=== PATIENT | female | born 1975 | race Caucasian/White ===

== ENCOUNTER 2018-08-16 00:12 | Emergency (ER) | payer OTHER ==
[~2018-08-16] VITALS: Ht 170.2 cm; Wt 75.7 kg
[2018-08-16 00:26] VITALS: Ht 170.2 cm; Wt 75.7 kg
[2018-08-16] MEDS ORDERED: KETOROLAC 60 MG INJ IM STA (06:14)
[2018-08-16] MEDS ORDERED: ONDANSETRON (ODT) 4 MG TAB ODT STA (06:18)
[2018-08-16] MEDS ORDERED: LIDOCAINE 1% (MPF) 5 ML VIAL IM ONE (06:30)
[2018-08-16] MEDS ORDERED: metroNIDAZOLE 500 MG TAB PO ONE (06:30)
[2018-08-16] MEDS ORDERED: DOXYCYCLINE 100 MG TAB PO ONE (06:30)
[2018-08-16] MEDS ORDERED: CEFTRIAXONE 1 GM INJ IM ONE (06:30)
[2018-08-16] MEDS ORDERED: METR500T PO (07:25)
[2018-08-16] MEDS ORDERED: CEPH-443 PO (07:25)
[2018-08-16] MEDS ORDERED: DOXY100T20 PO (07:25)
[2018-08-16] MEDS ORDERED: ONDA4TAB8 PO (07:25)
[2018-08-16 07:28] VITALS: BP 104/61; PULSE 57; RESP 16
--- NOTE | 2018-08-16 07:36 | ERD ---
ER Documentation Chief Complaint Chief Complaint pt reports possible cotton ball in vagina x 1 month HPI History of Present Illness: 43-year-old female with no past medical history comes in today with complaint of vaginal discharge and possible foreign body in vagina. Patient reports getting off her period approximately 2 days ago. Patient reports approximately last month around the same time she used cotton rounds instead of a tampon during her period. Patient believes that she may have left some of the cotton grounds inside of her vagina. Patient reports having yellow vaginal discharge after use of these cotton swabs. Patient last time having sex was 2018. Patient denies these type of symptoms after sexual intercourse. More specifically it has occurred after use of these cotton rounds/swabs. At home pharmacological/nonpharmacological treatment for symptoms: denies Denies social concerns; Denies recent foreign travel ROS All systems reviewed and are negative except as per history of present illness. Medications Home Meds Active Scripts Ondansetron Hcl* (Zofran*) 4 Mg Tablet, 4 MG PO Q12 for nausea/vomiting for 27 Days, TAB Prov:LUIS TORRES NP 08/16/18 Metronidazole* (Flagyl*) 500 Mg Tablet, 500 MG PO TID for pelvic/vaginal infe ction for 14 Days, #27 TAB Prov:LUIS TORRES V POT LINER 08/16/18 Cephalexin* (Keflex*) 500 Mg Capsule, 500 MG PO QID for urine infection for 7 Days, CAP Prov:LUIS TORRES V POT LINER 08/16/18 Doxycycline Hyclate* (Doxycycline Hyclate*) 100 Mg Tablet.dr, 100 MG PO BID for pelvic/vaginal infection for 14 Days, #27 TAB Prov:LUIS TORRES V POT LINER 08/16/18 Allergies Allergies: Coded Allergies: No Known Allergy (Unverified , 08/16/18) PMhx/Soc Medical and Surgical Hx: pt denies Medical Hx History of Surgery: Yes (d&c) Anesthesia Reaction: No Hx Alcohol Use: No Hx Substance Use: No Hx Tobacco Use: Yes Smoking Status: Current every day smoker FmHx Family History: No diabetes Physical Exam Vitals Vital Signs Date Temp Pulse Resp B/P (MAP) Pulse Ox O2 O2 Flow FiO2 Time Delivery Rate 08/16/18 57 16 104/61 100 Room Air 07:28 (75) 08/16/18 96.7 68 16 142/73 100 00:26 (96) Physical Exam Const: No acute distress Head: Atraumatic Eyes: Normal Conjunctiva ENT: Normal External Ears, Nose and Mouth. Neck: Full range of motion. No meningismus. Resp: Clear to auscultation bilaterally Cardio: Regular rate and rhythm, no murmurs Abd: Soft, tenderness to suprapubic, non distended. Normal bowel sounds, Skin: No petechiae or rashes Back: No midline or flank tenderness Ext: No cyanosis, or edema Neur: Awake and alert Psych: Normal Mood and Affect Pelvic Exam: Metal Flow Coordinator present Abdomen: Nontender External Genitalia: Normal Skin Speculum: Normal vaginal mucosa, yellow blood-tinged cervical discharge Bimanual: No adnexal masses; tenderness over uterus no CMT, Results 24 hrs Laboratory Tests Test 08/16/18 06:36 08/16/18 06:40 POC Beta HCG, Qualitative NEGATIVE Urine Color YELLOW Urine Clarity SLIGHTLY CLOUDY Urine pH 5.0 Urine Specific [place] 1.020 Urine Ketones NEGATIVE mg/dL Urine Nitrite POSITIVE mg/dL Urine Bilirubin NEGATIVE mg/dL Urine Urobilinogen NEGATIVE mg/dL Urine Leukocyte Esterase NEGATIVE [place]/ul Urine Microscopic RBC 1 /HPF Urine Microscopic WBC 1 /HPF Urine Squamous Epithelial Cells FEW /HPF Urine Bacteria FEW /HPF Urine Mucus FEW /HPF Urine Hemoglobin 1+ mg/dL Urine Glucose NEGATIVE mg/dL Urine Total Protein NEGATIVE mg/dl Current Medications Medications Dose Sig/Vicente Start Time Status Last (Trade) Ordered Route PRN Stop Time Admin Dose Reason Admin Ketorolac 60 mg ONCE STAT 08/16/18 DC 08/16/18 Tromethamine IM 06:14 06:45 (Toradol) 08/16/18 06:18 Ceftriaxone 1 gm ONCE ONCE 08/16/18 DC 08/16/18 Sodium IM 06:30 06:42 (Rocephin) 08/16/18 06:31 Lidocaine 2.1 ml ONCE ONCE 08/16/18 DC 08/16/18 (Xylocaine IM 06:30 06:42 1% (Mpf)) 08/16/18 06:31 Doxycycline 100 mg ONCE ONCE 08/16/18 DC 08/16/18 Hyclate PO 06:30 06:43 (Vibramycin) 08/16/18 06:31 500 mg ONCE ONCE 08/16/18 DC 08/16/18 Metronidazole PO 06:30 06:43 (Flagyl) 08/16/18 06:31 Ondansetron 4 mg ONCE STAT 08/16/18 DC 08/16/18 HCl (Zofran ODT 06:18 06:43 Odt) 08/16/18 06:20 Procedures/MDM ED course includes a thorough examination and history. Medications: Rocephin, doxycycline, Toradol, Flagyl, Zofran Imaging: --- Labs: Urine , urinalysis, urogenital wet mount Low suspicion for life-threatening medical emergency. Low suspicion for gynecological or acute abdominal emergency that requires hospitalization or immediate surgical intervention Otherwise healthy patient presenting with constellation of symptoms likely representing vaginal infection, pelvic inflammation, urinary tract infection as characterized by history, physical exam findings. Lab findings. Urogenital wet mount with positive clue cells, no trichomonas. Urinalysis showing positive nitrites, Positive bacteria, positive hemoglobin. No respiratory distress, otherwise relatively well appearing and nontoxic. Patient educated on diagnoses, prescriptions, follow-up care, return precautions. Strict return precautions given for worsening condition; questions answered discharge. Family member present with patient for disposition. Verbalizes understanding of instructions. Patient Luxembourger speaking. All q uestions answered. Strict follow-up given. No sex. Disposition for discharge with followup in 2 days with PCP/clinic. Departure Diagnosis: Primary Impression: Female pelvic inflammation Additional Impressions: Vaginal infection UTI (urinary tract infection) Urinary tract infection type: site unspecified Hematuria presence: without hematuria Qualified Codes: N39.0 - Urinary tract infection, site not specified Condition: Stable Patient Instructions: Urinary Tract Infections in Women, Vaginal Infection: Understanding the Vaginal Environment, Vaginal Infection: Bacterial Vaginosis, Pelvic Inflammatory Disease Referrals: [facility] YOU HAVE RECEIVED A MEDICAL SCREENING EXAM AND THE RESULTS INDICATE THAT YOU DO NOT HAVE A CONDITION THAT REQUIRES URGENT TREATMENT IN THE EMERGENCY DEPARTMENT. FURTHER EVALUATION AND TREATMENT OF YOUR CONDITION CAN WAIT UNTIL YOU ARE SEEN IN YOUR DOCTORS OFFICE WITHIN THE NEXT 1-2 DAYS. IT IS YOUR RESPONSIBILITY TO MAKE AN APPOINTMENT FOR FOLOW-UP CARE. IF YOU HAVE A PRIMARY DOCTOR --you should call your primary doctor and schedule an appointment IF YOU DO NOT HAVE A PRIMARY DOCTOR YOU CAN CALL OUR PHYSICIAN REFERRAL HOTLINE AT IF YOU CAN NOT AFFORD TO SEE A PHYSICIAN YOU CAN CHOSE FROM THE FOLLOWING [facility] [address] [facility] [address] [facility]. [place] [address] [facility] [address] [facility] [phone] [facility] [facility] [address] [facility] [facility] YOU HAVE RECEIVED A MEDICAL SCREENING EXAM AND THE RESULTS INDICATE THAT YOU DO NOT HAVE A CONDITION THAT REQUIRES URGENT TREATMENT IN THE EMERGENCY DEPARTMENT. FURTHER EVALUATION AND TREATMENT OF YOUR CONDITION CAN WAIT UNTIL YOU ARE SEEN IN YOUR DOCTORS OFFICE WITHIN THE NEXT 1-2 DAYS. IT IS YOUR RESPONSIBILITY TO MAKE AN APPOINTMENT FOR FOLOW-UP CARE. IF YOU HAVE A PRIMARY DOCTOR --you should call your primary doctor and schedule and appointment IF YOU DO NOT HAVE A PRIMARY DOCTOR YOU CAN CALL OUR PHYSICIAN REFERRAL HOTLINE AT . IF YOU CAN NOT AFFORD TO SEE A PHYSICIAN YOU CAN CHOSE FROM THE FOLLOWING [facility] INSTITUTIONS: [facility] [address] [place] [address] [facility] [address] [place] [address] [facility] [address] [place] [address] [employer] [place] [address] [facility] [address] [place], [place] [id number] OFFICE FAX BECKY CAO [address] [place], [place] [id number] [address] [place] [place] [address] [place], [place] [phone] ELIJAH [place]ORDERO [address] [facility], [address] [address] [address] [facility] [place] [phone] [facility] [address] [facility] [place] [address] [address] [facility] [place] [id number] - [place] [address] [facility] [place] [address] [address] [place], [place] [address] [facility]. [address], [facility] [place] [address] PATO [address]NER [address] [place], [place] [id number] Additional Instructions: Thank you very much for allowing us to participate in your care. Your health and safety is our top priority at [facility]. It is important to read all discharge instructions and education provided in your discharge packet. Call your primary care doctor TOMORROW for an appointment during the next 2-4 days and bring all the information and medications prescribed. Have prescriptions filled and follow precisely the directions on the label. -Cephalexin, metronidazole, doxycycline are all antibiotics; take these medication every day as listed on your prescription. You must complete the entire course of treatment that is listed on your prescription this is very important because it takes a certain number of days to kill the bacteria that is causing the infection. -Cephalexin is for the urinary tract infection. Metronidazole and doxycycline is for the vaginal and pelvic infection. -Zofran is a medication for nausea/vomitting; take this medication as needed for nausea/vomiting/decreased appetite. If the symptoms get worse and your provider is unavailable, return to the Emergency Department immediately. Is very important to follow-up with your primary care provider for reevaluation and retesting of urine and vaginal to ensure infection no longer present. LUIS TORRES NP Aug 16, 2018 07:36
== END 2018-08-16 07:37 | disposition home or self-care (01) ==
LOC: FTE 00:12
DX: N73.9 Female pelvic inflammatory disease, unspecified (principal); F17.210 Nicotine dependence, cigarettes, uncomplicated; N39.0 Urinary tract infection, site not specified; N76.0 Acute vaginitis
CPT/HCPCS: 81001; 81025; 87210; 87591; 96372; J0696; J1885; Z7502; Z7610